=== PATIENT | female | born 1985 | race Caucasian/White ===

== ENCOUNTER 2017-10-26 16:59 | Emergency (ER) | payer SELFPAY ==
[~2017-10-26] VITALS: Ht 162.6 cm; Wt 56.7 kg
[~2017-10-26 16:59] MED LIST: HYDR1TAB75 PO; HYDR1TAB8 OP
--- OUTSIDE RECORDS SUMMARY | 2017-10-26 17:05 | XMS REPORT ---
Author DARRYL Moreno Organization [employer] Address Unknown Phone Unavailable Care Team Providers Care Sleep Lab Technician Name Role Phone DARRYL KING CP Unavailable Allergies No Known Allergies Problems Problem Type Condition Code Onset Dates Condition Status Problem Depressive disorder F32.9 Active Problem Tobacco use Z72.0 Active Problem OCP (oral contraceptive pills) initiation Z30.9 Active Medications Medication Code System Code Instructions Start Date End Date Status Dosage Prozac [facility] [address]-66 20 MG Oct 13, 2014 1 capsule by Oral route 1 time per day Results No Known Results Summary Purpose [employer] Submission
--- OUTSIDE RECORDS SUMMARY | 2017-10-26 17:05 | XMS REPORT ---
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 Role Phone JOSE BURNS Unavailable PROBLEMS Type Condition ICD9-CM Code ANF05-CI Code Onset Dates Condition Status SNOMED Code Problem Routine gynecological examination Z01.419 Active 452310138 Problem Condyloma acuminata A63.0 Active 016727233 Problem Depressive disorder F32.9 Active 74415826 Problem OCP (oral contraceptive pills) initiation Z30.9 Active 302881562 Problem Tobacco use Z72.0 Active 624229172 ALLERGIES Substance Reaction Event Type Date Status Penicillamine rash Drug Allergy March, Active SOCIAL HISTORY Never Assessed PLAN OF CARE VITAL SIGNS MEDICATIONS Medication Instructions Dosage Frequency Start Date End Date Duration Status Womens Multi Vitamin & Mineral Active RESULTS No Results PROCEDURES No Known procedures IMMUNIZATIONS No Known Immunizations MEDICAL (GENERAL) HISTORY Type Description Date Medical History Depressive disorder, not elsewhere classified Surgical History Left Hand Repair 01/2015 Hospitalization History childbirth only
--- OUTSIDE RECORDS SUMMARY | 2017-10-26 17:05 | XMS REPORT | Continuity of Care Document ---
Author Author [facility] Organization [facility] Address Unknown Phone Unavailable Allergies Active Description Code Type Severity Reaction Onset Reported/Identified Relationship to Patient Clinical Status Yes Penicillins Drug Allergy N/A N/A 09/30/2011 Medications Problems Date Dx Coded Attending Type Code Diagnosis Diagnosed By 09/30/2011 V72.31 AIRFREIGHT OPERATIONS AGENT EXAM, ROUTINE 09/30/2011 CHAPINCITO RANGEL APRN V72.31 AIRFREIGHT OPERATIONS AGENT EXAM, ROUTINE 09/30/2011 AJ STINSON MD V72.31 AIRFREIGHT OPERATIONS AGENT EXAM, ROUTINE 09/30/2011 AJ STINSON MD V72.31 AIRFREIGHT OPERATIONS AGENT EXAM, ROUTINE 09/30/2011 AJ STINSON MD V72.31 AIRFREIGHT OPERATIONS AGENT EXAM, ROUTINE 09/30/2011 AJ STINSON MD V72.31 AIRFREIGHT OPERATIONS AGENT EXAM, ROUTINE 05/07/2013 305.1 TOBACCO ABUSE 05/07/2013 311 DEPRESSIVE DISORDER NOT ELSEWHERE CLASSIFIED 05/07/2013 V25.42 CONTRACEPTION SURVEILLANCE (IUD) 05/07/2013 V76.2 CERVICAL CANCER SCREENING (PAP SMEAR) 05/07/2013 CHAPINCITO RANGEL APRN 305.1 TOBACCO ABUSE 05/07/2013 CHAPINCITO RANGEL APRN 311 DEPRESSIVE DISORDER NOT ELSEWHERE CLASSIFIED 05/07/2013 CHAPINCITO RANGEL APRN V25.42 CONTRACEPTION SURVEILLANCE (IUD) 05/07/2013 CHAPINCITO RANGEL APRN V76.2 CERVICAL CANCER SCREENING (PAP SMEAR) 05/07/2013 AJ STINSON MD 305.1 TOBACCO ABUSE 05/07/2013 AJ STINSON MD 311 DEPRESSIVE DISORDER NOT ELSEWHERE CLASSIFIED 05/07/2013 AJ STINSON MD V25.42 CONTRACEPTION SURVEILLANCE (IUD) 05/07/2013 AJ STINSON MD V76.2 CERVICAL CANCER SCREENING (PAP SMEAR) 05/07/2013 AJ STINSON MD 305.1 TOBACCO ABUSE 05/07/2013 AJ STINSON MD 311 DEPRESSIVE DISORDER NOT ELSEWHERE CLASSIFIED 05/07/2013 AJ STINSON MD V25.42 CONTRACEPTION SURVEILLANCE (IUD) 05/07/2013 AJ STINSON MD V76.2 CERVICAL CANCER SCREENING (PAP SMEAR) 05/07/2013 AJ STINSON MD 305.1 TOBACCO ABUSE 05/07/2013 AJ STINSON MD 311 DEPRESSIVE DISORDER NOT ELSEWHERE CLASSIFIED 05/07/2013 AJ STINSON MD V25.42 CONTRACEPTION SURVEILLANCE (IUD) 05/07/2013 AJ STINSON MD V76.2 CERVICAL CANCER SCREENING (PAP SMEAR) 05/07/2013 AJ STINSON MD 305.1 TOBACCO ABUSE 05/07/2013 AJ STINSON MD 311 DEPRESSIVE DISORDER NOT ELSEWHERE CLASSIFIED 05/07/2013 AJ STINSON MD V25.42 CONTRACEPTION SURVEILLANCE (IUD) 05/07/2013 AJ STINSON MD V76.2 CERVICAL CANCER SCREENING (PAP SMEAR) 11/20/2013 CHAPINCITO RANGEL APRN R 462 ACUTE PHARYNGITIS 11/20/2013 AJ STINSON MD 462 ACUTE PHARYNGITIS 11/20/2013 AJ STINSON MD 462 ACUTE PHARYNGITIS 11/20/2013 AJ STINSON MD 462 ACUTE PHARYNGITIS 11/20/2013 AJ STINSON MD 462 ACUTE PHARYNGITIS Procedures Code [place] [address] PAP SMEAR 2012 Q0091 PAP SMEAR OBTAIN SMEAR 05/10/2013 Results Encounters ACCT No. Visit Date/Time Discharge Status Pt. Type Provider Facility Loc./Unit Complaint [id number] 11/02/2013 10:52:00 2012 16:15:00 DIS Outpatient [id number] 10/29/2013 09:35:00 2012 23:59:59 CLS Outpatient [id number] 10/21/2013 22:24:00 2012 23:23:00 DIS Emergency [id number] 10/13/2014 09:08:00 10/13/2014 23: 59:59 CLS Outpatient AJ STINSON MD [id number] 05/31/2014 10:42:00 05/31/2014 23: 59:59 CLS Outpatient AJ STINSON MD [id number] 03/31/2014 11:13:00 03/31/2014 23: 59:59 CLS Outpatient AJ STINSON MD [id number] 03/01/2014 10:45:00 03/01/2014 23: 59:59 CLS Outpatient AJ STINSON MD [id number] 11/20/2013 14:02:00 11/20/2013 23: 59:59 CLS Outpatient CHAPINCITO RANGEL APRN [id number] 05/07/2013 10:16:00 Document Registration
--- OUTSIDE RECORDS SUMMARY | 2017-10-26 17:05 | XMS REPORT ---
Author Author JOSE BURNS Organization [facility] Address [address] [place] [address] Care Team Providers Care Reptile Keeper Name Role Phone JOSE BURNS Unavailable PROBLEMS Type Condition ICD9-CM Code [id number] Code Onset Dates Condition Status SNOMED Code Problem Routine gynecological examination Z01.419 Active 294511745 Problem Condyloma acuminata A63.0 Active 044805961 Problem Depressive disorder F32.9 Active 31434615 Problem OCP (oral contraceptive pills) initiation Z30.9 Active 518682692 Problem Tobacco use Z72.0 Active 233661657 ALLERGIES Substance Reaction Event Type Date Status Penicillamine rash Drug Allergy March, Active SOCIAL HISTORY Never Assessed PLAN OF CARE Activity Details Follow Up 6 Weeks Reason: VITAL SIGNS Height 64 in 2017-04-30 Weight 130.9 lbs 2017-04-30 Temperature 98.2 degrees Fahrenheit 2017-04-30 Heart Rate 76 bpm 2017-04-30 Respiratory Rate 18 2017-04-30 BMI 22.47 kg/m2 2017-04-30 Blood pressure systolic 110 mmHg 2017-04-30 Blood pressure diastolic 78 mmHg 2017-04-30 MEDICATIONS Medication Instructions Dosage Frequency Start Date End Date Duration Status Womens Multi Vitamin & Mineral Active Prozac 10 mg Orally Once a day 2 tablets 24h March, 90 days Active RESULTS No Results PROCEDURES No Known procedures IMMUNIZATIONS No Known Immunizations MEDICAL (GENERAL) HISTORY Type Description Date Medical History Depressive disorder, not elsewhere classified Surgical History Left Hand Repair 01/2015 Hospitalization History childbirth only
--- OUTSIDE RECORDS SUMMARY | 2017-10-26 17:05 | XMS REPORT ---
Author Author CHRISTIANE SALOMON Organization [employer] Address Unknown Phone Unavailable Care Team Providers Care Manager Retail Store Name Role Phone CHRISTIANE SALOMON CP Unavailable Allergies, Adverse Reactions, Alerts Substance Reaction Event Type Penicillamine rash Drug Allergy Problems Problem Type Condition Code Onset Dates Condition Status Problem Depressive disorder F32.9 Active Problem Tobacco use Z72.0 Active Problem OCP (oral contraceptive pills) initiation Z30.9 Active Assessment OCP (oral contraceptive pills) initiation Z30.9 Active Assessment Tobacco use Z72.0 Active Assessment Encounter for IUD removal Z30.432 Active Assessment General counseling and advice on female contraception Z30.09 Active Medications Medication Code System Code Instructions Start Date End Date Status Dosage Womens Multi Vitamin & Mineral [facility] [address] Orally not defined Sprintec 28 [facility] [address]-12 0.25-35 MG-MCG Orally Once a day Sep 27, 2015 1 tablet Prozac [facility] [address]-73 20 mg Oct 13, 2014 1 capsule by Oral route 1 time per day Procedures Procedure Coding System Code Date LIPID PANEL CPT-4 27427 Sep 27, 2015 COMPREHEN METABOLIC PANEL CPT-4 65495 Sep 27, 2015 URINE TEST CPT-4 14809 Sep 27, 2015 REMOVE INTRAUTERINE DEVICE CPT-4 33560 Sep 27, 2015 VENIPUNCT, ROUTINE* CPT-4 78459 Sep 27, 2015 Vital Signs Date/Time: Sep 27, 2015 Temperature 98.1 F Weight 144 lbs Height 64 in BMI 24.71 Index Blood Pressure Diastolic 72 mmHg Blood Pressure Systolic 114 mmHg Cardiac Monitoring Heart Rate 84 bpm Results Name Result Date Reference Range Unit Abnormality Flag TEST, URINE (IN HOUSE) Summary Purpose [employer] Submission
[2017-10-26] MEDS ORDERED: FLUO20CA42 PO (17:21)
--- NOTE | 2017-10-26 17:55 | ED General ---
General Chief Complaint: Chest Wall/Rib Pain Stated Complaint: R SIDE RIB PAIN Nursing Triage Note: PT CO OF R RIB PAIN AFTER COUGHING EPISODE. Nursing Sepsis Screen: No Definite Risk Source of Information: Patient Exam Limitations: No Limitations History of Present Illness Time Seen by Provider: 17:54 Initial Comments Right lateral rib pain after coughing episode earlier today. Has had a cough for about 2 weeks now. Timing/Duration: 1-2 Days Severity: Moderate Associated Systoms: Denies Symptoms Allergies and Home Medications Allergies Coded Allergies: Penicillins (Verified Allergy, Intermediate, HIVES, 10/21/13) Home Medications Fluoxetine HCl 20 Mg Capsule, 20 MG PO DAILY, (Reported) Constitutional: see HPI, No chills EENTM: see HPI Respiratory: see HPI, cough Cardiovascular: no symptoms reported Genitourinary: no symptoms reported Musculoskeletal: no symptoms reported Skin: no symptoms reported Past Hcovsnq-[place] Hx Patient Social History Alcohol Use: Denies Use Recreational Drug Use: No Smoking Status: Current Everyday Smoker Type Used: Cigarettes Recent Foreign Travel: No Contact w/Someone Who Travel: No Recent Infectious Disease Expo: No Recent Hopitalizations: No Physical Abuse: No Sexual Abuse: No Surgeries History of Surgeries: Yes (L HAND SURG X2) Respiratory History of Respiratory Disorde: No Cardiovascular History of Cardiac Disorders: No Neurological History of Neurological Disord: No Reproductive System Sexually Transmitted Disease: No Gastrointestinal History of Gastrointestinal Di: No Musculoskeletal History of Musculoskeletal Dis: No Endocrine History of Endocrine Disorders: No Cancer History of Cancer: No Psychosocial History of Psychiatric Problem: No Suicide Risk Score: 0 Integumentary History of Skin or Integumenta: No Blood Transfusions History of Blood Disorders: No Physical Exam Vital Signs Vital Sign - Last 12Hours 10/26/17 17:05 Temp 97.9 Pulse 102 Resp 18 B/P (MAP) 125/107 Pulse Ox 100 Capillary Refill : Less Than 3 Seconds General Appearance: No Apparent Distress, WD/WN Eyes: Bilateral Eye Normal Inspection, Bilateral Eye PERRL, Bilateral Eye EOMI HEENT: PERRL/EOMI, TMs Normal Neck: Full Range of Motion, Normal Inspection Respiratory: No Accessory Muscle Use, No Respiratory Distress Gastrointestinal: Normal Bowel Sounds, Non Tender, Soft Extremity: Normal Capillary Refill, No Calf Tenderness Neurologic/Psychiatric: Alert, Oriented x3 Skin: Normal Color, Warm/Dry Progress/Results/Core Measures Suspected Sepsis Recent Fever Within 48 Hours: No Infection Criteria Present: None New/Unexplained Altered Menta: No Sepsis Screen: No Definite Risk Sepsis Diagnosis: SIRS Temperature:97.9 Pulse: 102 Respiratory Rate: 18 Blood Pressure 125 /107 Mean: 113 Results/Orders My Orders Orders - RADHA DOMINGUEZ APRN Ribs/Unilateral With Chest (10/26/17 17:28) Vital Signs/I&O Vital Sign - Last 12Hours 10/26/17 17:05 Temp 97.9 Pulse 102 Resp 18 B/P (MAP) 125/107 Pulse Ox 100 Capillary Refill : Less Than 3 Seconds Blood Pressure Mean: 113 Departure Impression Impression: Primary Impression: Chest wall pain Disposition: HOME, SELF-CARE Condition: Stable Departure-Patient Inst. Decision time for Depature: 18:03 Referrals: JOSE BURNS MD (PCP/Family) Primary Care Physician Patient Instructions: Acute Bronchitis, Adult (DC) Add. Discharge Instructions: 1. Return to ER for any concerns 2. Pain medication as directed 3 See your doctor within 48 hours for recheck. All discharge instructions reviewed with patient and/or family. Voiced understanding. RADHA DOMINGUEZ APRN Oct 26, 2017 17:55
--- NOTE | 2017-10-26 18:14 | Diagnostic Imaging Report ---
INDICATION: Cough. Right axillary pain. COMPARISON: None. EXAMINATION: Frontal radiographic view of the chest was obtained. FINDINGS: Normal cardiac silhouette and pulmonary vasculature. 6-7 mm calcified granuloma is noted within the medial left apex. Otherwise, lungs are clear. There is no focal consolidation, large effusion or pneumothorax. Three dedicated radiographic views of the right ribs were obtained. No displaced or healed right-sided rib fractures identified. No other acute osseous abnormalities are seen. IMPRESSION: 1. No acute cardiopulmonary process. 2. No healing or displaced right-sided rib fractures. Dictated by: Dictated on workstation # [id number]
[2017-10-26] MEDS ORDERED: RX-HYDROCODONE/APAP 5/325 MG #4 TAB PK PO PRN (18:15)
[2017-10-26 18:23] VITALS: BP 125/107
== END 2017-10-26 18:22 | disposition home or self-care (01) ==
LOC: EDUNIT# 16:59 → ER 17:00
DX: R07.89 Other chest pain (principal); F17.210 Nicotine dependence, cigarettes, uncomplicated
CPT/HCPCS: 71101; 99283